=== PATIENT | female | born 1995 | race African-American/Black ===

== ENCOUNTER 2021-02-24 19:35 | Emergency (ER) | payer OTHER ==
[~2021-02-24] VITALS: Ht 162.6 cm; Wt 81.6 kg
[2021-02-24 19:42] VITALS: BP_SYST 122
[2021-02-24] MEDS: METOCLOPRAMIDE HCL 10 MG/2 ML VIAL IVP ONE (21:02)
[2021-02-24] MEDS: MORPHINE 4 MG INJ. 4 MG/ML VIAL IVP ONE (21:04)
[2021-02-24] MEDS: NACL 0.9% 1,000 ML IV ONE (21:06)
[2021-02-24] MEDS ORDERED: ONDA-8 TL (21:44)
[2021-02-24] MEDS: DIPHENHYDRAMINE INJ 50 MG/ML VIAL IVP ONE (22:00)
[2021-02-24 22:31] VITALS: BP_SYST 106
== END 2021-02-24 22:31 | disposition home or self-care (01) ==
LOC: SED 19:35
DX: S06.0X0A Concussion without loss of consciousness, initial encounter (principal); S29.012A Strain of muscle and tendon of back wall of thorax, initial encounter; S16.1XXA Strain of muscle, fascia and tendon at neck level, initial encounter; S39.012A Strain of muscle, fascia and tendon of lower back, initial encounter; M54.12 Radiculopathy, cervical region; M54.30 Sciatica, unspecified side; W01.0XXA Fall on same level from slipping, tripping and stumbling without subsequent striking against object, initial encounter; Y93.89 Activity, other specified; Y92.89 Other specified places as the place of occurrence of the external cause; Y99.8 Other external cause status
CPT/HCPCS: 70450; 72125; 72128; 72131; 76376; 96361; 96374; 96375; 99285; J1200; J2270; J2765; J7030